=== PATIENT | male | born 1990 | race Caucasian/White ===

== ENCOUNTER 2019-02-28 10:46 | Emergency (ER) | payer OTHER, SELFPAY ==
[2019-02-28 10:52] VITALS: BP 159/90; PULSE 85; RESP 15; TEMP 37; O2SAT 100
--- NOTE | 2019-02-28 11:01 | ED.GENADUL_ITS ---
Discharge Plan Disposition Patient Disposition: HOME Condition: Good Discharge Details Chief Complaint: EarProblem Clinical Impression: TMJ (temporomandibular joint disorder) Primary Care Provider: Stan Tran ED Provider: Waleska Millard Home Meds and New Rx's Prescriptions: New ibuprofen 600 mg tablet 600 mg PO Q6H PRN (Reason: pain) Qty: 20 RF: 0 Continued acetaminophen 500 mg Tablet 1,000 mg PO Q4H PRNRF: 0 Discharge Instructions Instructions: Temporomandibular Disorder (ED) Additional Instructions: Encourage hydration. Tylenol and ibuprofen as needed for discomfort. As discussed, the ibuprofen is prescribed to help with inflammation related to the discomfort. Please follow-up with dentist persist in the next 1 to 2 weeks. He may try mouthguard to help with clenching of teeth at night. If you develop fever/chills, increased pain or other new/worsening symptoms please seek care urgently once again. Referrals: Stan Tran MD [Primary Care Provider] - Discharge Data Discharge Date/Time-TO BE ENTERED AT DEPARTURE: 02/28/19 11:49 Medical Decision Making Patient is a 28-year-old male presenting today with chief complaint of right ear and jaw pain. He reports the pain began approximately 1 week ago. This endorsed increased stress recently. Does not have any fevers or chills. Denies any known trauma. On exam, the right ear is without acute abnormality. Tips. Pain is elicited with palpation over the right TMJ and audible click is appreciated on opening. He is got full range of motion of the TMJ. Speaking clearly, able to perform mastication injured. Advised to mandibular joint disorder. Advised anti-inflammatory to help with the discomfort. Will begin on ibuprofen. Encourage hydration. Advise follow-up with dentist tomorrow in 1-2 weeks. Discussed new/worsening symptoms seek care urgently once again. All his questions and concerns were addressed and he is in agreement this plan. HPI General Mode of arrival: ambulatory . Date/Time Provider Initiated Documentation: 02/28/19 11:00 . Limitations to Documentation: no limitations . Information obtained by: patient and RN notes reviewed . History of Present Illness 28 year old M presents to the emergency department with the chief complaint of right ear and jaw pain, described as mild, with intensity rated at 2. Quality is described as aching, and is localized to the face. Patient reports no radiation. Patient started experiencing this week(s) (1) and it has been constant. No relieving factors improve symptom(s), Eating worsens symptoms . Patient notes no other symptoms.. Patient did receive the following treatments prior to arrival, other (tylenol) Related Data Home Medications Medication Instructions Recorded Confirmed acetaminophen 1,000 mg PO Q4H PRN 02/28/19 02/28/19 ibuprofen 600 mg PO Q6H PRN #20 tab 02/28/19 Previous Rx's Medication Instructions Recorded ibuprofen 600 mg PO Q6H PRN #20 tab 02/28/19 Allergies Allergy/AdvReac Type Severity Reaction Status Date / Time No Known Allergies Allergy Unverified 02/28/19 10:58 General Stated Complaint: EarProblem MARICRUZ: 4 Review of Systems Constitutional Reports as per HPI and Denies headache(s) Eyes Reports as per HPI, Denies eye discharge and Denies irritation ENT Reports as per HPI and Denies headache(s) Cardiovascular Reports as per HPI, Denies chest pain and Denies dyspnea Respiratory Reports as per HPI and Denies dyspnea Gastrointestinal Reports as per HPI, Denies abdominal pain, Denies change in bowel habits, Denies nausea and Denies vomiting Integumentary/Breasts Reports as per HPI and Denies rash Neurologic Reports as per HPI and Denies headache(s) [facility] Social History Smoking/Tobacco Use Status: Current every day Tobacco Type: cigarettes Smoking cigarettes per day: 10 Alcohol Intake: never Drug use: Occasionally Substance use type: marijuana Do you feel safe at home: Yes Do you feel safe in your relationship?: Yes Exam Const General: cooperative, healthy appearing, comfortable, no acute distress, well developed and well groomed Nutritional Appearance: average body habitus and well nourished Orientation: alert and awake [facility] Head: normal to inspection, normocephalic and atraumatic Ears: hearing grossly normal bilaterally, external ears normal and TM's normal bilaterally General nose exam: external nose normal and nares normal Face and sinus: normal facial exam, sinuses nontender and face symmetric Mouth: oral mucosae normal, lip normal, tongue normal, oropharynx normal, moist mucous membranes, No mouth trauma, no muffled voice, abnormal TMJ (Audible and palpable crack to right TMJ x1 with opening, otherwise WNL), no trismus and No restricted motion Teeth and gingiva: dentition normal and gingiva normal Throat: posterior oropharynx normal, tonsils normal and uvula midline Eyes General: appearance normal, both eyes and all related structures Neck Neck: normal visual inspection, full ROM, no lymphadenopathy and no meningeal signs Resp Effort & Inspection: normal respiratory effort, able to speak in complete sentences and no respiratory distress Auscultation: clear to auscultation bilaterally, no rales, no rhonchi and no wheezes Cardio Rate: regular rate Rhythm: regular rhythm Heart Sounds: S1 normal and S2 normal Skin General skin exam: no rashes or lesions noted Neuro General: alert and awake Cognition: normal cognition Speech: speech normal Gait: normal gait Psych Appearance: grossly normal and well kempt Mental Status: mental status grossly normal Speech and Movement: speech and movement normal Course Vital Signs Temperature 37 C 02/28/19 10:52 Pulse 85 02/28/19 10:52 Respiratory Rate 15 02/28/19 10:52 Blood Pressure 159/90 H 02/28/19 10:52 Pulse Oximetry 100 02/28/19 10:52 Temperature 37 C 02/28/19 10:52 Temperature Source Tympanic 02/28/19 10:52 Pulse 85 02/28/19 10:52 Respiratory Rate 15 02/28/19 10:52 Respiratory Effort Non-Labored 02/28/19 10:57 Blood Pressure 159/90 H 02/28/19 10:52 Blood Pressure Position Sitting 02/28/19 10:52 Pulse Oximetry 100 02/28/19 10:52 Oxygen Delivery Method Room Air 02/28/19 10:52 Oxygen Flow Rate 0 02/28/19 10:52 Pain Level 2 02/28/19 10:58
== END 2019-02-28 11:49 | disposition home or self-care (01) ==
LOC: ER 11:16
PROVIDERS: Emergency Provider Physician Assistant; PCP Family Medicine
DX: M26.621 Arthralgia of right temporomandibular joint (principal); R68.84 Jaw pain
CPT/HCPCS: 99282

== ENCOUNTER 2020-10-20 03:20 | Outpatient (CLI) | payer OTHER, SELFPAY ==
[2020-10-20 08:30] LABS: ALT 55 U/L (16-63); AST 29 U/L (15-37); Albumin 3.9 g/dL (3.4-5.0); Alkaline Phosphatase 69 U/L (46-116); Anion Gap 7.9 mmol/L (3-11); BUN 16 mg/dL (7-18); Bilirubin, Total 0.5 mg/dL (0.2-1.0); CO2 26.1 mmol/L (21.0-32.0); CREATININE 0.8 mg/dL (0.70-1.30); Calcium 9.2 mg/dL (8.5-10.1); Calculated LDL 136 mg/dL (<100); Chloride 106 mmol/L (98-107); Cholesterol 204 mg/dL (<200); Glucose 108 mg/dL (74-106); HDL Cholesterol 39 mg/dL (40-60); Potassium 4.6 mmol/L (3.5-5.1); Sodium 140 mmol/L (136-145); TSH (W/Ref FT4) 0.92 uIU/mL (0.36-3.74); Total Protein 8.1 g/dL (6.4-8.2); Triglyceride 148 mg/dL (<150)
== END 2020-10-20 03:21 | disposition home or self-care (01) ==
LOC: LBO 03:20
PROVIDERS: Physician Assistant; PCP Family Medicine; Visit Provider Nurse Practitioner
DX: I10 Essential (primary) hypertension (principal)
CPT/HCPCS: 36415; 80053; 80061; 84443